=== PATIENT | male | born 2000 | race African-American/Black ===

== ENCOUNTER 2019-06-16 22:45 | Emergency (ER) | payer MEDICAID ==
[~2019-06-16] VITALS: Ht 175.3 cm; Wt 61.2 kg
[2019-06-16 22:59] VITALS: BP 108/63
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
[2019-06-16] MEDS ORDERED: HYDROcodone/Acetamin 5/325 tab ORAL ONE (23:15)
[2019-06-16] MEDS ORDERED: IBUPROFEN600 M1 ORAL (23:38)
[2019-06-16] MEDS ORDERED: HYDROCODON-ACE1 EA15 ORAL (23:38)
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
[2019-06-17 00:15] VITALS: BP 112/65
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
== END 2019-06-17 00:15 | disposition home or self-care (01) ==
LOC: EMR 23:07
DX: S09.90XA Unspecified injury of head, initial encounter (principal); S42.031A Displaced fracture of lateral end of right clavicle, initial encounter for closed fracture; S93.401A Sprain of unspecified ligament of right ankle, initial encounter; S80.812A Abrasion, left lower leg, initial encounter; V03.19XA Pedestrian with other conveyance injured in collision with car, pick-up truck or van in traffic accident, initial encounter; Y92.410 Unspecified street and highway as the place of occurrence of the external cause
CPT/HCPCS: 70450; 73030; 73590; 73610; Z7502; 99284